=== PATIENT | male | born 1945 | race Caucasian/White ===

== ENCOUNTER 2023-08-25 21:51 | Emergency (ER) | payer MEDICARE ==
[2023-08-25 22:08] VITALS: TEMP 97.5; O2SAT 95
--- NOTE | 2023-08-25 22:16 | ERPHSYRPT ---
- History of Present Illness Time Seen by Provider: 08/25/23 22:10 Source: patient Exam Limitations: no limitations Patient Subjective Stated Complaint: Chronic back pain Triage Nursing Assessment: 78 yr old male pt arrives via [facility] from [facility]. pt presents with complaints of chronic back pain. pt reports that the skilled nursing has been late on his pain medication and he needs pain relief. Pt deneis numbness, tingling and pain down his legs. Pt is alert, oriented and not in distress. Physician History: This is a 78-year-old white male patient who was brought to the emergency department by the ambulance/supervisor of way service from the [facility] assisted living/skilled nursing facility. The patient is a resident at that facility. Patient states he has no abdominal pain. He denies chest pain and he denies shortness of breath. Patient states that he is here at our facility because he did not receive his evening pain medications. He states that he did not suffer any acute or new injury. He has no numbness or loss of bowel or bladder control. He has localized pain in the lower back which is crushing, sharp and throbbing. He states that if he had received his narcotic pain medicine in a timely fashion he would not be here. When we discussed what happened today at the facility the nursing staff stated that patient went to dialysis and returned from dialysis then refused his next dose of medication later in the afternoon. The facility stated they have been passing out medications but the patient states that it has been taking too long and he is in a lot of pain. Therefore he requested, per the facility report, to come to the emergency department to receive pain control. Patient has not had any narcotic pain medicine since approximately 10:30 AM this morning. Patient has a history of chronic low back pain and has had a number of surgical procedures and has significant metal hardware in situ. He has a history of asthma, diabetes, coronary disease. Timing/Duration: today Method of Injury: other (No new injury) Quality: sharp, other (Crushing and throbbing) Severity of Pain-Max: moderate Severity of Pain-Current: moderate Modifying Factors: Improves With: movement Associated Symptoms: lower back pain, muscle spasms, No urinary incontinence, No loss of bowel control, No vomiting, No problems urinating, No numbness in legs/feet Previous symptoms: same symptoms as today, no recent treatment Hx Tetanus, Diphtheria Vaccination/Date Given: Yes Hx Influenza Vaccination/Date Given: Yes Hx Pneumococcal Vaccination/Date Given: Yes Travel Risk - International Travel Have you traveled outside of the country in past 3 weeks: No - Emerging Infectious Disease Are you exhibiting symptoms associated with any current EIDs: No - Review of Systems Constitutional: No Symptoms Eyes: No Symptoms Ears, Nose, & Throat: No Symptoms Respiratory: No Symptoms Cardiac: No Symptoms Abdominal/Gastrointestinal: No Symptoms Genitourinary Symptoms: No Symptoms Musculoskeletal: Back Pain Skin: No Symptoms Neurological: No Symptoms Psychological: No Symptoms Endocrine: No Symptoms Hematologic/Lymphatic: No Symptoms Immunological/Allergic: No Symptoms All Other Systems: Reviewed and Negative - Past Medical History Pertinent Past Medical History: Yes Neurological History: No Pertinent History ENT History: Cataracts Cardiac History: Other Respiratory History: Asthma Endocrine Medical History: Diabetes Type II Musculoskeletal History: Other GI Medical History: No Pertinent History History: Dialysis Psycho-Social History: No Pertinent History Male Reproductive Disorders: No Pertinent History - Past Surgical History Past Surgical History: Yes Neuro Surgical History: No Pertinent History Cardiac: CABG Respiratory: No Pertinent History Gastrointestinal: No Pertinent History Genitourinary: No Pertinent History Musculoskeletal: Orthopedic Surgery Male Surgical History: No Pertinent History Other Surgical History: 4 back surgerys, 2 neck surgeries and 2 eye surgeries - Social History Smoking Status: Never smoker Exposure to second hand smoke: No Drug Use: none - Nursing Vital Signs Nursing Vital Signs: Initial Vital Signs Temperature 97.5 F 08/25/23 21:51 Pulse Rate 91 H 08/25/23 21:51 Respiratory Rate 18 08/25/23 21:51 Blood Pressure 120/46 08/25/23 21:51 O2 Sat by Pulse Oximetry 95 08/25/23 21:51 Pain Scale Pain Intensity [Lower Back] 10 Pain Intensity 10 - Physical Exam General Appearance: no apparent distress, alert, anxiety Eye Exam: PERRL/EOMI, eyes nml inspection Ears, Nose, Throat Exam: normal ENT inspection, moist mucous membranes Neck Exam: normal inspection, non-tender, supple, full range of motion Respiratory Exam: normal breath sounds, lungs clear, airway intact, No chest tenderness, No respiratory distress Cardiovascular Exam: regular rate/rhythm, normal heart sounds, normal peripheral pulses Gastrointestinal Exam: soft, normal bowel sounds, No tenderness Rectal Exam: not done Back Exam: normal inspection, normal range of motion, vertebral tenderness (Lumbar level), decreased range of motion, muscle spasm (Lumbar level), other, No CVA tenderness Extremity Exam: normal inspection, normal range of motion, pelvis stable Neurologic Exam: alert, oriented x 3, cooperative, chart picker II-XII nml as tested, normal mood/affect Skin Exam: normal color, warm, dry Lymphatic Exam: No adenopathy SpO2 Interpretation: normal SpO2: 95 O2 Delivery: Room Air - Course Nursing assessment & vital signs reviewed: Yes - Progress Progress: improved, pain not gone completely, re-examined Progress Note: 08/25/23 22:27 My medical decision making and my signing of a low level complexity in this patient is based on review of the patient's past medical history, review the patient's medication list, review of patient drug allergy list, history present illness and physical findings on examination. No radiographic or laboratory studies are necessary in this patient. Patient is adamant that she he has no abdominal pain. He also states he has no chest pain no shortness of breath. I do not feel the patient requires any radiographic studies. He states the only reason why he is here is to obtain pain relief because of localized pain that he is experiencing that is typical for him and it is significant. He thinks and states that this is due to to the fact he did not receive his narcotic medication in a timely fashion this evening Counseled pt/family regarding: diagnosis, need for follow-up Medical Desision Making - Independent Historian Additional History obtained from: Intermediate nurse, Forester Aide/EMT - Diagnostic Testing Diagnostic test were ordered, analyzed, and reviewed by me: No - Risk of complications Minimal Risk: Minimal risk of morbidity - Departure Departure Disposition: Home Clinical Impression: Acute exacerbation of chronic low back pain Condition: Stable Critical Care Time: No Additional Instructions: Continue your medications as prescribed.
[2023-08-25] MEDS ORDERED: ZOFRAN ODT 4 MG ONE (22:33)
[2023-08-25] MEDS ORDERED: Sterile H2O 10 ml IJ ONE (22:33)
[2023-08-25] MEDS ORDERED: solu-MEDROL ONE (22:34)
[2023-08-25] MEDS ORDERED: Hydromorphone 1 mg/ml Injection ONE (22:34)
[2023-08-25] MEDS: solu-MEDROL 80 MG, Sterile H2O 10 ml 2 ML IM ONE (22:40)
[2023-08-25] MEDS: Hydromorphone 1 mg/ml Injection IM ONE (22:41)
[2023-08-25] MEDS: ZOFRAN ODT 4 MG PO ONE (22:42)
[2023-08-25 23:05] VITALS: BP 127/42; PULSE 90; RESP 20
== END 2023-08-25 23:36 | disposition home or self-care (01) ==
LOC: ED 21:51
DX: G89.29 Other chronic pain (principal); M54.50 Low back pain, unspecified; E11.9 Type 2 diabetes mellitus without complications
CPT/HCPCS: 96372; 99283; J1170; J2930; Q0162